=== PATIENT | male | born 1940 | race Caucasian/White ===

== ENCOUNTER 2024-02-10 08:36 | Outpatient (CLI) | payer MEDICARE, BC ==
[2024-02-09 10:20] LABS: ALBUMIN 3.7 G/DL (3.4-5.0); ANION GAP 10 (8-16); BLOOD UREA NITROGEN 11 MG/DL (7-18); BUN/CREATININE RATIO 10.9 (10.0-20.0); CALCIUM 9.2 MG/DL (8.5-10.1); CHLORIDE 103 MMOL/L (99-107); CREATININE 1.01 MG/DL (0.60-1.10); GLUCOSE 108 MG/DL (70-104); POTASSIUM 4.5 MMOL/L (3.5-5.1); SODIUM 140 MMOL/L (135-145); TOTAL CARBON DIOXIDE 27.3 MMOL/L (24-32); eGFR 70 ML/MIN
[2024-02-10] MEDS ORDERED: iohexol 350 MG/ML 50ML vial IV ONE (08:43)
[2024-02-10] MEDS ORDERED: iohexol 350MG/ML 100ml bottle IV ONE (08:44)
== END 2024-02-10 23:59 | disposition home or self-care (01) ==
LOC: RAD 08:36
PROVIDERS: ATTEND Internal Medicine Interventional Cardiology
DX: I71.43 Infrarenal abdominal aortic aneurysm, without rupture (principal); I71.21 Aneurysm of the ascending aorta, without rupture; I74.5 Embolism and thrombosis of iliac artery; I35.0 Nonrheumatic aortic (valve) stenosis; J98.11 Atelectasis; J98.4 Other disorders of lung; N28.1 Cyst of kidney, acquired; K44.9 Diaphragmatic hernia without obstruction or gangrene; N40.0 Benign prostatic hyperplasia without lower urinary tract symptoms; M43.16 Spondylolisthesis, lumbar region
CPT/HCPCS: 36415; 74174; 80048; Q9967

== ENCOUNTER 2024-07-26 23:22 | Emergency (ER) | payer MEDICARE, BC ==
[~2024-07-26] VITALS: Ht 180.3 cm; Wt 90.9 kg
--- NOTE | 2024-07-26 23:36 | Physician Documentation ---
History of Present Illness ~ Chief Complaint: Chest Pain Stated Complaint: CHEST PAIN Time Seen by MD: 23:25 Source: patient, EMS, EMS notes reviewed Mode of Arrival: EMS Exam Limitations: no limitations HPI Chief Complaint: Chest pain Caveat: None Independent Historians: Paramedics History of Present Illness: Patient is an 84-year-old man who complains of chest pain that began approximately hour and a half prior to arrival. Patient is brought in by paramedics. Patient's chest pain was initially 8/10 and is now currently 4/10. Patient states that the pain felt like someone sitting on his chest and tightness. That has improved. Patient now has pleuritic chest pain that is 4/10 when he takes a deep breath. The chest tightness has resolved. During the chest tightness he had some associated shortness of breath which has since resolved. Patient had a brief episode of similar chest tightness last evening that resolved and then returned tonight. No nausea vomiting diarrhea. No abdominal pain. No diaphoresis. No fever. Patient has had a cough nonproductive for one month. Review of systems: All systems were reviewed and are negative except for what is indicated in the history of present illness. Past Medical History: Coronary artery disease, AAA, HTN, HLD Past Surgical History: Aortic [place] [address] Calhoun, multiple aortic leak repairs since then. Most recent repair was in [place] in 2020. PTCA- 2 stents, followed by Dr. Kim Social History: No tobacco use, no alcohol use, no drug use Medications: Reviewed as documented Nursing Notes Allergies: Reviewed as documented in Nursing Notes Medication Reconciliation Allergies: Coded Allergies: No Known Allergies (Unverified , 07/26/24) Scheduled Amlodipine Besylate (Amlodipine Besylate), 1 TAB PO DAILY, (Reported) Escitalopram Oxalate (Escitalopram Oxalate), 1 TAB PO DAILY, (Reported) Metoprolol Succinate (Metoprolol Succinate), 1 TAB PO DAILY, (Reported) Omeprazole (Omeprazole), 1 CAP PO QAM, (Reported) Rosuvastatin Calcium (Rosuvastatin Calcium), 1 TAB PO HS, (Reported) Review of Systems All Other Systems at this time: Reviewed and Negative ROS Patient denies any other acute symptoms other than above. All other systems are negative Physical Exam Vital Signs: RN Vital Signs have been reviewed: Yes, Temperature: 98.9, Source: Oral, Heart Rate: 79, Respiratory Rate: 17, BP: 160/84, Pulse Oximetry: 95, Weight: 90.910 Oxygen Flow Rate: 0 Pulse Oximetry Reflects: adequate oxygenation Physical Exam General Appearance: No distress HEENT: Normal OP, moist oral mucosa, PERRL, EOMI Neck: supple, normal ROM, trachea midline Pulmonary: No respiratory distress, CTA, BS equal Cardiac: RRR, no murmur, rub or gallop, GI: nondistended, soft, nontender, normal bowel sounds, no guarding, no rebound Extremities: normal ROM, no swelling, non-tender Skin: intact, dry, warm, no rashes Neuro: AAOx3, speech is clear, no focal motor weakness Psych: normal affect, good eye contact, no apparent hallucination, normal speech Progress Results/Orders Results/Orders Orders - CALEB RENTERIA MD Chest,Single View (07/26/24 23:40) Monitor (07/26/24 23:24) Saline Lock (07/26/24 23:24) Oxygen (07/26/24 23:24) Cta Chest Abdomen Pelvis (07/27/24 01:45) Morphine 4mg/Ml Inj. (Morphine Inj.) (07/27/24 04:20) Page Hospitalist (07/27/24 04:19) Fill Out Med Reconciliation (07/27/24 04:19) Completed Orders - CALEB RENTERIA MD Chest,Single View (07/26/24 23:40) Cbc/Diff (07/26/24 23:24) BMP (07/26/24 23:24) PBNP (07/26/24 23:24) Electrocardiogram (07/26/24 23:24) Hs Troponin I W Calculations (07/26/24 23:24) Hs Troponin I W Calculations (07/27/24 01:24) Hs Troponin I W Calculations (07/27/24 02:24) Cta Chest Abdomen Pelvis (07/27/24 01:45) Iohexol 350mg/Ml 100ml (Omnipaque 350mg/ (07/27/24 01:11) Stat Ekg (07/27/24 ) Ondansetron Inj. (Zofran 4mg/2ml Vial) (07/27/24 04:20) Medications Received in ER Medications (Trade) Dose Ordered Sig/Sigrid Route PRN Reason Start Time Stop Time Status Last Admin Dose Admin (Zofran 4mg/2ml vial) 4 mg ONCE ONCE IV 07/27/24 04:20 07/27/24 04:21 DC 07/27/24 04:26 4 MG (morphine inj.) 4 mg Q20M PRN IV moderate to severe pain 4-10 07/27/24 04:20 07/27/24 04:26 4 MG Vital Signs 07/26/24 07/26/24 07/26/24 07/27/24 23:24 23:35 23:40 00:06 Temp 98.9 98.9 Pulse 79 77 73 Resp 17 14 12 15 B/P (MAP) 160/84 134/73 (93) 147/73 (97) Pulse Ox 95 94 93 O2 Flow Rate 0 0 0 07/27/24 07/27/24 03:51 04:26 Temp 98.9 Pulse 75 Resp 20 20 B/P (MAP) 139/71 (93) Pulse Ox 95 O2 Flow Rate 0 Laboratory Tests Test 07/26/24 23:33 07/27/24 01:52 07/27/24 02:39 White Blood Count 6.0 Red Blood Count 3.26 L Hemoglobin 11.2 L Hematocrit 32.6 L Mean Corpuscular Volume 100.0 H Mean Corpuscular Hemoglobin 34.3 H Mean Corpuscular Hemoglobin Concent 34.3 Red Cell Distribution Width 15.1 H Platelet Count 52 L Mean Platelet Volume 7.7 Neutrophils (%) (Auto) 62.1 Lymphocytes (%) (Auto) 24.8 Monocytes (%) (Auto) 10.2 Eosinophils (%) (Auto) 2.2 Basophils (%) (Auto) 0.7 Neutrophils # (Auto) 3.7 Lymphocytes # (Auto) 1.5 Monocytes # (Auto) 0.6 Eosinophils # (Auto) 0.1 Basophils # (Auto) 0.0 CBC Comment Platelet Estimate Decreased Red Blood Cell Morphology Perf Basophilic Stippling Macrocytosis Few Elliptocytes 1+ Sodium Level 139 Potassium Level 4.3 Chloride Level 102 Carbon Dioxide Level 27.0 Anion Gap 10 Blood Urea Nitrogen 13 Creatinine 1.15 H Estimated GFR/1.73 m2 60 BUN/Creatinine Ratio 11.3 Glucose Level 114 H Calcium Level 8.8 Troponin I High Sensitivity 9 13 14 Pro-B-Type Natriuretic Peptide 253 Albumin 3.6 Chemistry Comments Troponin I High Sens Percent Delta 44 7 Troponin I Hi Sens Absolute Change 4 1 Medical Decision Making Additional info obtained from: old records Findings Differential diagnosis includes but is not limited to: Acute coronary syndrome, pulmonary embolus, aortic dissection, pneumothorax, esophagitis, GERD, cholecystitis, cholelithiasis, choledocholithiasis, gastritis EKG independent interpretation: Performed at 11:27 a.m. p.m.. Normal sinus rhythm, heart rate 78, leftward axis, first-degree AV block, nonspecific ST changes Repeat EKG, independent interpretation: Performed at 3:47 a.m.. Normal sinus rhythm, heart rate 74, left axis deviation, low-voltage, first-degree AV block, precordial leads V2 and V3 were not reversed. Chest x-ray, single view, indication: Chest pain Independent interpretation: Lungs are clear, aortic stent present, cardiomegaly, no acute cardiopulmonary process identified Laboratory data independent interpretation: CBC: Mild anemia with a hemoglobin of 11.2 and hematocrit 32.6, thrombocytopenia with a platelet count of 52 CMP: Creatinine mildly elevated with a creatinine of 1.15 and an estimated GFR of 60 First troponin: 9 2nd troponin: 13 3rd troponin: 14 Pro BNP: 253 Emergency department course/medical decision-making: Patient complains of chest pain. Cause is unclear. Cardiac enzymes are negative. 4:10 A.M.: PATIENT IS HAVING RECURRENT CHEST PAIN NOW RADIATING TO THE BACK. ALSO COMPLAINING OF BURNING CHEST PAIN. PAIN IS CURRENTLY 8/10. I HAVE SPOKEN TO THE RAILROAD TRACK REPAIR SUPERVISOR AND SHE CALLED EARLIER REQUESTING THAT THE CTA OF THE CHEST BE INTERPRETED BY THE RADIOLOGIST. I STILL HAVE NOT HEARD ANYTHING BACK FROM RADIOLOGY IN THE IMAGES OF STILL NOT BEEN INTERPRETED. 4:12 A.M.: I HAVE ASKED MY CASING CREW TO CALL THE RADIOLOGY GROUP AND TO STAY ON THE PHONE UNTIL RADIOLOGIST IS ON THE PHONE WITH ME GIVING THE INTERP RETATION. 4:15 A.M.: CASE DISCUSSED WITH THE RADIOLOGIST. SHE WILL INTERPRETED THE FILMS NOW AND CALL ME IF THERE IS ANY CONCERNS. 4:50 a.m.: Report obtained showing endovascular leak at the aortic arch. Patient will require transfer to a higher level of care as I believe his pain is secondary to this endovascular stent leak at the aortic arch. 4:55 A.M.: CASE DISCUSSED WITH DR. PEACOCK OF RADIOLOGIST. SHE CALLED BACK WITH THE ABOVE FINDINGS. THERE WAS ALSO AN ENDOVASCULAR LEAK IN THE AAA HOWEVER SHE HAS IMAGES TO COMPARE AND THIS IS STABLE. THE AORTIC ANEURYSM HAS NOT ENLARGED IN THE LEAK IS UNCHANGED. THE RADIOLOGIST DOES NOT HAVE PRIOR IMAGES OF THE AORTIC ARCH REPAIR AND THIS IS THOUGHT TO BE ACUTE. Consultation/communications: PATIENT WILL REQUIRE TRANSFER TO A HIGHER LEVEL CARE. 5:20 A.M.: CASE DISCUSSED WITH THE TRANSFER CENTER. REPORT GIVEN AWAITING FOR A CALL BACK 5:40 A.M.: [facility] DE[facility] TRANSFER 6:00 A.M.: CARE THE PATIENT TRANSFERRED TO DR. LEWIS FOR CONTINUED CARE AND TRANSFER TO HIGHER LEVEL CARE Departure Time of Disposition: 04:32 Disposition: 02 SHORT TERM HOSPITAL Admission Level of Care: Med/Surg with Tele Impression: Primary Impression: Chest pain Qualified Codes: R07.9 - Chest pain, unspecified Additional Impression: ENDOVASCULAR LEAK OF THE AORTIC ARCH Condition: Guarded Referrals: NO PRIMARY CARE PROVIDER (PCP) Education Educated: Patient Educated regarding: diagnosis, treatment Signature Scribe Signature: No scribe Attestation: No scribe CALEB RENTERIA MD Jul 26, 2024 23:36
[2024-07-26 23:38] LABS: EOSINOPHILS # (AUTO) 0.1 X10'3 (0-0.9); HEMATOCRIT 32.6 % (42.0-52.0); HEMOGLOBIN 11.2 g/dl (14.0-17.9); LYMPHOCYTES # (AUTO) 1.5 X10'3 (1.1-4.8); MEAN CORPUSCULAR HEMOGLOBIN 34.3 PG (27.0-31.0); MEAN CORPUSCULAR HGB CONC 34.3 g/dL (33.0-36.5); MONOCYTES # (AUTO) 0.6 X10'3 (0-0.9); MONOCYTES % (AUTO) 10.2 % (2-12); NEUTROPHILS % (AUTO) 62.1 % (42-75); PLATELET COUNT 52 X10'3 (140-440)
[2024-07-26 23:40] LABS: BASOPHILS % (AUTO) 0.7 % (0-1); EOSINOPHILS % (AUTO) 2.2 % (0-6); LYMPHOCYTES % (AUTO) 24.8 % (21-51); MEAN PLATELET VOLUME 7.7 FL (7.4-10.4); NEUTROPHILS # (AUTO) 3.7 X10'3 (1.8-7.7); RED BLOOD COUNT 3.26 X10'6 (4.70-6.10); RED CELL DISTRIBUTION WIDTH 15.1 % (11.5-14.5)
[2024-07-26 23:54] LABS: PLATELET ESTIMATE DECREASED
[2024-07-26 23:55] LABS: ELLIPTOCYTES 1+
[2024-07-27] LABS: ALBUMIN 3.6 G/DL (3.4-5.0); ANION GAP 10 (8-16); BLOOD UREA NITROGEN 13 MG/DL (7-18); BUN/CREATININE RATIO 11.3 (10.0-20.0); CALCIUM 8.8 MG/DL (8.5-10.1); CHLORIDE 102 MMOL/L (99-107); CREATININE 1.15 MG/DL (0.60-1.10); GLUCOSE 114 MG/DL (70-104); POTASSIUM 4.3 MMOL/L (3.5-5.1); PRO BRAIN NATRIURETIC PEPTIDE 253 PG/ML (0-450); SODIUM 139 MMOL/L (135-145); eCRCL 49 ML/MIN; eGFR 60 ML/MIN
--- NOTE | 2024-07-27 00:11 | RADIOLOGY REPORT ---
CHEST RADIOGRAPH Indication: CP Technique: Single frontal view of the chest was obtained COMPARISON: None FINDINGS: Lines and Tubes: None Lungs: Clear Pleura: No definite effusion. No pneumothorax. Cardiomediastinal contours: Stent graft spanning the distal ascending aorta, arch and descending thor acic aorta. Cardiac silhouette otherwise grossly normal. Bones: Unremarkable IMPRESSION: 1. No acute disease. 2. Thoracic aortic stent graft.
[2024-07-27] MEDS ORDERED: iohexol 350MG/ML 100ml bottle IV ONE (01:11)
--- NOTE | 2024-07-27 03:49 | ELECTROCARDIOGRAPH REPORT ---
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 Miguel Angel Batista Measurements Intervals [place] Rate: 75 P: 51 MD: 222 QRS: -21 QRSD: 100 T: 38 QT: 400 QTc: 447 Interpretive Statements Incomplete analysis due to missing data in precordial lead(s) Sinus rhythm Prolonged MD interval Borderline left axis deviation Abnormal R-wave progression, early transition Borderline T abnormalities, anterior leads Missing lead(s): V5 Electronically Signed On 08-06-2024 18:44:[address] Miguel Angel Batista Please click the below link to view image of tracing.
[2024-07-27 03:51] VITALS: TEMP 98.9
[2024-07-27] MEDS: ondansetron/PF 4mg/2ml inj IV ONE (04:26)
[2024-07-27] MEDS: morphine 4 MG/ML inj SYRINge IV PRN (04:26)
[2024-07-27] MEDS ORDERED: ROSU20TA98 PO (04:32)
[2024-07-27] MEDS ORDERED: OMEP20CA16 PO (04:32)
[2024-07-27] MEDS ORDERED: METO-395 PO (04:32)
[2024-07-27] MEDS ORDERED: ESCI20TA39 PO (04:32)
[2024-07-27] MEDS ORDERED: AMLO2.5T5 PO (04:32)
--- NOTE | 2024-07-27 04:47 | RADIOLOGY REPORT ---
Exam: CT CTA CHEST ABDOMEN PELVIS W/ IV CONTRAST History: EVALUATE FOR AORTIC DISSECTION Comparison Study: CT CTA ABDOMEN PELVIS on DOS: 02/10/24 Technique: CT angiography of the chest, abdomen and pelvis were obtained. Coronal and sagittal and 3D / MIP images are provided. Radiation Dose : 1. Chest/Abdomen/Pelvis: CTDIvol 16.62 mGy, DLP 1260.5 unremarkable thyroid mGy*cm. Findings: Lower neck: Unremarkable thyroid. Lungs: Moderate centrilobular and paraseptal emphysema. No focal pulmonary consolidation. Central airways: Patent. Pleura: No pneumothorax or pleural effusion. Heart/Vascular Structures: There is endovascular repair of the thoracic aorta. 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 Intramural thrombus noted also in the aortic arch. No extension of dissecti on into the carotid, subclavian or vertebral arteries. There are foci of enhancement along the later al margin of the aortic stent for which type II endoleak are not excluded (axial image 37 of 275). T here is fusiform aneurysmal dilatation of the descending thoracic aorta which measures 4.4 cm in diam eter and there is a dissection in the distal most aspect of the descending thoracic aorta. This is s imilar to prior CT from 02/10/2024. No evidence of pulmonary embolism. Lymph Nodes: Increased number of mediastinal lymph nodes which are enlarged. For reference, a right p aratracheal lymph node measures 1.1 cm in short axis. Liver: The liver is normal in size. No focal lesions. Normal hepatic vascular enhancement. Gallbladder and Biliary Tree: The gallbladder is unremarkable. No biliary ductal dilatation. Spleen: Unremarkable Pancreas: The pancreas is normal in appearance without focal lesions or abnormal enhancement. Adrenal Glands: Unremarkable Kidneys: Kidneys demonstrate normal symmetric enhancement without focal lesions, calculi or hydroneph rosis. Left renal cyst. Bladder: Unremarkable Bowel: Hiatal hernias. Small bowel is normal in caliber. No bowel obstruction. Scattered stool throug hout the colon. Normal appendix. Peritoneum: No pneumoperitoneum. No ascites. Lymphadenopathy: No mesenteric, retroperitoneal or periportal lymphadenopathy. Abdominal Wall and Mesentery: Herniorrhaphy in the ventral abdominal wall. Vasculature: Infrarenal abdominal aortic aneurysm measuring 11.2 cm in diameter status post aorto bi iliac stent. Persistent thrombosis of the aneurysm, unchanged. There are curvilinear foci of enhance ment in the right side of the aneurysm sac concerning for type II endoleak. The appearance is simila r to prior study. Bilateral renal arteries are patent. Common iliac arteries are patent. The right in ternal iliac artery is chronically occluded similar to prior study. Bilateral external iliac arteries and left internal iliac artery are patent. 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 Superior and inferior mesenteric arteries are patent. Splenic artery patent. Pelvic Organs: Enlarged prostate. Musculoskeletal: No aggressive focal bony lesions, acute fractures or dislocation. IMPRESSION: 1. 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 2. 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 3. 11.2 cm infrarenal abdominal aortic aneurysm status post repair with thrombosis in the aneurysm an d findings concerning for type 2 endoleak similar to prior CT from 02/10/2024. Size of the aneurysm i s not significantly changed since that study. 4. Chronically occluded right internal iliac artery. 5. Centrilobular and paraseptal emphysema. 6. Hiatal hernia. 7. Additional nonacute findings as described.
--- NOTE | 2024-07-27 06:06 | ELECTROCARDIOGRAPH REPORT ---
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 Miguel Angel Batista Measurements Intervals [place] Rate: 78 P: 56 DE: 221 QRS: -22 QRSD: 96 T: 53 QT: 386 QTc: 440 Interpretive Statements Sinus rhythm Prolonged [place] interval Borderline left axis deviation Abnormal R-wave progression, early transition Borderline T abnormalities, anterior leads Electronically Signed On 08-02-2024 18:00:[address] Miguel Angel Batista Please click the below link to view image of tracing.
[2024-07-27 10:06] VITALS: BP 137/73; PULSE 74; RESP 16; O2SAT 98
== END 2024-07-27 10:07 | disposition critical access hospital (66) ==
LOC: ER 23:22 → ED HOLD 07-27 04:33 → UNDOADMIN 07-27 04:33 → UNDODISIN 07-27 10:07
DX: R07.89 Other chest pain (principal); Q25.49 Other congenital malformations of aorta; Z79.899 Other long term (current) drug therapy
CPT/HCPCS: 36415; 71045; 71275; 74174; 80048; 83880; 84484; 85008; 85025; 93005; 96374; 96375; 99285; A4615; J2270; J2405; Q9967; G0378